=== PATIENT | female | born 1985 | race Caucasian/White ===

== ENCOUNTER 2020-01-15 19:55 | Emergency (ER) | payer OTHER ==
[2020-01-15 20:13] VITALS: BP 121/64
[2020-01-15] MEDS ORDERED: SULFAMETH/TRIMETH DS 800/160 MG TABLET PO STA (20:14)
[2020-01-15] MEDS ORDERED: cephALEXin 250 MG CAPSULE PO STA (20:14)
--- NOTE | 2020-01-15 20:16 | ED Physician Documentation ---
History of Present Illness - Stated complaint Stated Complaint: RASH - Chief complaint Chief Complaint: Wound - History obtained from History obtained from: Patient - History of Present Illness Timing: How many weeks ago (1) Pain level max: 4 Pain level now: 3 - Additonal information Additional information: Patient with multiple areas of redness of the skin. She states [place] [employer] [place] given mupirocin cream. She is continuing to have redness and pain. Worse with palpation, better with rest. No fevers. She is not , breast-feeding or trying to become . Has an IUD in place. Review of Systems Constitutional: denies: Fever, Chills Nose: denies: Rhinorrhea / runny nose, Congestion : reports: Control (IUD). denies: Now EGA Skin: denies: Rash Musculoskeletal: denies: Neck pain, Back pain PD PAST MEDICAL HISTORY - Past Medical History Past Medical History: Yes Respiratory: Other - Past Surgical History Past Surgical History: No - Present Medications Home Medications: Ambulatory Orders Medication Instructions Recorded Confirmed Levonorgestrel [Mirena] 1 each IY 07/24/13 02/14/15 Cephalexin [Keflex] 500 mg PO Q6H #28 capsule 01/15/20 Sulfamethox/Trimeth 800/160 1 each PO BID #14 tablet 01/15/20 [Bactrim Ds 800/160] - Allergies Allergies/Adverse Reactions: Allergies Allergy/AdvReac Type Severity Reaction Status Date / Time No Known Drug Allergies Allergy Verified 01/15/20 20:13 - Living Situation Living Arrangement: reports: At home - Social History Does the pt smoke?: Yes Smoking Status: Current every day smoker Does the pt drink ETOH?: Yes Does the pt have substance abuse?: Yes - Immunizations Immunizations are current?: Yes - POLST Patient has POLST: No PD ED PE NORMAL - Vitals Vital signs reviewed: Yes - General General: Alert and oriented X 3, No acute distress - HEENT HEENT: Moist mucous membranes - Neck Neck: Supple, no meningeal sign - Cardiac Cardiac: RRR - Respiratory Respiratory: No respiratory distress, Clear bilaterally - Derm Derm: Warm and dry - Neuro Neuro: Alert and oriented X 3 - Free text exam Free text exam: Small areas of cellulitis to left axilla, less than 1 cm. There is one on the left lower extremity without induration, 1 cm. Also 1 on the left great toe, mild induration, no fluctuance or drainage, 1 cm. Results - Vitals Vitals: Vital Signs - 24 hr 01/15/20 20:00 Temperature 36.6 C Heart Rate 87 Respiratory 16 Rate Blood Pressure 121/64 O2 Saturation 100 Oxygen O2 Source Room air PD MEDICAL DECISION MAKING - ED course Complexity details: considered differential, d/w patient ED course: Patient with several small areas of cellulitis. Possible early abscesses but all very small. No fluctuance. No drainage. We will trial her on antibiotics first and see if these resolve, if not they may need incision and drainage. Patient counseled regarding signs and symptoms for which I believe and urgent re-evaluation would be necessary. Patient with good understanding of and agreement to plan and is comfortable going home at this time This document was made in part using voice recognition software. While efforts are made to proofread this document, sound alike and grammatical errors may occ ur. Departure - Departure Disposition: 01 Home, Self Care Clinical Impression: Cellulitis Qualifiers: Site of cellulitis: unspecified site Qualified Code(s): L03.90 - Cellulitis, unspecified Condition: Good Instructions: ED Infec Skin Cellulitis Follow-Up: your,doctor in 3 days for wound check [Other] Prescriptions: Sulfamethox/Trimeth 800/160 [Bactrim Ds 800/160] 1 each PO BID #14 tablet Cephalexin [Keflex] 500 mg PO Q6H #28 capsule Comments: Take all antibiotics until gone. Return if you worsen. Follow-up with your do ctor in approximately 3 days for wound check. Return sooner if you worsen. Discharge Date/Time: 01/15/20 20:46
== END 2020-01-15 20:46 | disposition home or self-care (01) ==
LOC: ED 19:55
DX: L03.112 Cellulitis of left axilla (principal); L03.116 Cellulitis of left lower limb; L03.032 Cellulitis of left toe; Z97.5 Presence of (intrauterine) contraceptive device; F17.200 Nicotine dependence, unspecified, uncomplicated
CPT/HCPCS: 99282; 99284; A9270

== ENCOUNTER 2020-05-21 08:56 | Outpatient (CLI) | payer OTHER ==
--- NOTE | 2020-05-22 15:08 | Ultrasound Report ---
LIMITED ULTRASOUND OF LEFT BREAST AND AXILLA: 05/21/2020 CLINICAL: Patient returns for short term follow-up of a probably benign mass in the left breast. Heather ent returns for additional imaging over a suspected mass in the left breast. Comparison is made to exams dated: 05/21/2020 mammogram - [facility] and 04/10/2020 ultrasound - [facility]. Color flow and real-time ultrasound of the left breast 1-2 o'clock, 4 o'clock, 6-7 o'clock, 10 o'cloc k, and axilla regions were performed. scale images of the real-time examination were reviewed. There is a stable 0.9 cm x 0.8 cm x 0.4 cm oval mass with a circumscribed margin in the left breast a t 1 o'clock middle depth 4 cm from the nipple. This oval mass is hypoechoic with a well-defined boun nader and no posterior acoustic shadowing or enhancement. Color flow imaging demonstrates that there is no vascularity present. This was previously documented at 3:00. There also is a stable 1.5 cm x 1.3 cm x 0.5 cm oval cyst with a septated internal wall in the left b reast at 2 o'clock posterior depth 4 cm from the nipple. This oval cyst is anechoic with a well-defi april boundary and posterior acoustic enhancement. Color flow imaging demonstrates that there is no va scularity present. This was previously documented at 3:00. Additionally, there is a stable 0.9 cm x 0.8 cm x 0.4 cm oval mass with a circumscribed margin in the left breast at 4 o'clock posterior depth 3 cm from the nipple. This oval mass is hypoechoic with a well-defined boundary and no posterior acoustic shadowing or enhancement. Color flow imaging demonst rates that there is no vascularity present. This was previously documented at 5:00. In addition, there is a stable 0.5 cm x 0.5 cm x 0.3 cm oval mass with a circumscribed margin in the left breast at 10 o'clock posterior depth 4 cm from the nipple. This oval mass is hypoechoic with a well-defined boundary and no posterior acoustic shadowing or enhancement. Color flow imaging demonst rates that there is no vascularity present. No mass is identified in the 7:00 region. No significant abnormalities were seen sonographically in the left axilla. IMPRESSION: PROBABLY BENIGN 1) Stable small multiple circumscribed masses in the left breast are probably benign. 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 Largest mass measures 0.9 cm. -Follow-up ultrasound in 6 months is recommended. 2) Previously seen small mass at 7:00 is not identified. 3) Stable small complicated cyst measuring 1.5 cm at 2:00 4 cm from the nipple Exam findings were conveyed to the patient. Patient is advised to monitor for significant change. This exam was interpreted at Station ID: [id number]. Electronically Signed By: Berlin Pepper M.D. slc/:05/21/2020 11:10:39 Ultrasound BI-RADS: 3 Probably benign BI-RADS CATEGORY: (3) - 3 Ultrasound [id number] 6 month follow-up LATERALITY: (B)
--- NOTE | 2020-05-22 15:08 | Mammography Report ---
BILATERAL DIGITAL DIAGNOSTIC MAMMOGRAM 3D/2D: 05/21/2020 CLINICAL: Additional evaluation requested from prior study. Comparison is made to exam dated: 04/10/2020 ultrasound - [facility]. The tissue of b oth breasts is extremely dense, which lowers the sensitivity of mammography. No significant calcifications or other findings are seen in either breast. The previously seen masses and cyst in the left breast are not appreciated, which is likely due to th e extremely dense breast tissue. IMPRESSION: INCOMPLETE: NEEDS ADDITIONAL IMAGING EVALUATION Previously seen masses and cyst in the left breast are not appreciated mammographically. A targeted ultrasound of the left breast is recommended and will immediately follow. This exam was interpreted at Station ID: [id number]. NOTE: For mammograms, a report in lay terms will be sent to the patient. Approximately 15% of breast malignancies will not be visualized mammographically. In the management of a palpable breast mass, a negative mammogram must not discourage biopsy of a clinically suspicious lesion. Electronically Signed By: Berlin Pepper M.D. slc/:05/21/2020 10:26:05 ACR BI-RADS Category 0: Incomplete 3340F PARENCHYMAL PATTERN: (VD) - The breast(s) demonstrate(s) extremely dense parenchyma, limiting the sen sitivity of mammography. BI-RADS CATEGORY: (0) - 0 Ultrasound [id number] Immediate follow-up LATERALITY: (B)
== END 2020-05-21 08:57 | disposition home or self-care (01) ==
LOC: DI 08:56
PROVIDERS: ATTEND Nurse Practitioner Family
DX: N60.02 Solitary cyst of left breast (principal); N63.21 Unspecified lump in the left breast, upper outer quadrant; N63.23 Unspecified lump in the left breast, lower outer quadrant
CPT/HCPCS: 76642; 77066

== ENCOUNTER 2020-12-25 13:37 | Outpatient (CLI) | payer OTHER ==
--- NOTE | 2020-12-26 13:24 | Ultrasound Report ---
LIMITED ULTRASOUND OF LEFT BREAST: 12/25/2020 CLINICAL: Patient returns for 6 month follow up sonographic evaluation of left breast masses. Comparison is made to exams dated: 05/21/2020 ultrasound, 05/21/2020 mammogram - [facility], and 04/10/2020 ultrasound - [facility]. Color flow ultrasound of the left breast 1-2 o'clock, 4 o'clock, and 10 o'clock regions was performe d. scale images of the real-time examination were reviewed. There is a 0.9 cm x 0.8 cm x 0.4 cm oval mass with a circumscribed margin in the left breast at 1 o'c lock middle depth 4 cm from the nipple. This oval mass is hypoechoic with a well-defined boundary an d no posterior acoustic shadowing or enhancement. This abnormality is not significantly changed. There also is a 1.5 cm x 1.3 cm x 0.5 cm oval cyst with a septated internal wall in the left breast a t 2 o'clock posterior depth 4 cm from the nipple. This oval cyst is anechoic and hypoechoic with a w ell-defined boundary and posterior acoustic enhancement. This abnormality is not significantly moreno ed. Additionally, there is a 0.6 cm x 0.6 cm x 0.3 cm oval mass with a circumscribed margin in the left b reast at 4 o'clock posterior depth 3 cm from the nipple. This oval mass is hypoechoic with a well-de fined boundary and no posterior acoustic shadowing or enhancement. This abnormality is not significa ntly changed. In addition, there is a stable 0.5 cm x 0.5 cm x 0.3 cm oval mass with a circumscribed margin in the left breast at 10 o'clock posterior depth 4 cm from the nipple. This oval mass is hypoechoic with a well-defined boundary and no posterior acoustic shadowing or enhancement. IMPRESSION: PROBABLY BENIGN The 0.9 cm x 0.8 cm x 0.4 cm oval mass in the left breast at 1 o'clock middle depth is consistent wit h a fibroadenoma and is probably benign. The 1.5 cm x 1.3 cm x 0.5 cm oval cyst in the left breast at 2 o'clock posterior depth is consistent with a complicated cyst and is probably benign. The 0.6 cm x 0.6 cm x 0.3 cm oval mass in the left breast at 4 o'clock posterior depth is consistent with a fibroadenoma and is probably benign. The stable 0.5 cm x 0.5 cm x 0.3 cm oval mass in the left breast at 10 o'clock posterior depth is con sistent with a fibroadenoma and is probably benign. A follow-up left ultrasound in 6 months is recommended to demonstrate stability. This exam was interpreted at Station ID: [id number]. Electronically Signed By: Miguel rojo/cristo:12/25/2020 14:39:55 Ultrasound BI-RADS: 3 Probably benign BI-RADS CATEGORY: (3) - 3 Ultrasound [id number] 6 month follow-up LATERALITY: (L)
== END 2020-12-25 13:38 | disposition home or self-care (01) ==
LOC: DI 13:37
PROVIDERS: ATTEND Student in an Organized Health Care Education/Training Program
DX: R92.8 Other abnormal and inconclusive findings on diagnostic imaging of breast (principal); D24.2 Benign neoplasm of left breast; N60.02 Solitary cyst of left breast